=== PATIENT | female | born 1990 | race Caucasian/White ===

== ENCOUNTER → 2017-06-13 09:12 | Outpatient (CLI) | payer OTHER, SELFPAY ==
[2017-06-13 10:48] LABS: Hematocrit 38.6 % (37-47); Mean Corp Hgb Conc 33.7 g/gl (32-36); Mean Corpuscular Hgb 33.3 pg (27.0-32.0); Mean Platelet Vol. 10.9 fl (6.2-12.0); Platelet Count 147 K/mm3 (150-450); RBC Distribution Width CV 13.3 % (11.6-14.6); RBC Distribution Width SD 46.7 fl (35.1-43.9); White Blood Count 6.3 K/mm3 (4.4-11.0)
[2017-06-13 10:49] LABS: Scan Indicated on CBC? Y/N NO
[2017-06-13 12:44] LABS: Glucose Challenge Gest 1H 50g 79 mg/dL (70-140)
== END ==
PROVIDERS: Visit Provider Obstetrics & Gynecology
DX: Z34.83 Encounter for supervision of other normal pregnancy, third trimester (principal)
CPT/HCPCS: 36415; 82950; 85027

== ENCOUNTER → 2017-08-22 15:52 | Outpatient (CLI) | payer OTHER, SELFPAY ==
[2017-08-22 19:46] LABS: Group B Strep DNA By PCR Negative (Negative); Internal Control PASS; Probe Check PASS; Specimen Processing Control PASS
== END ==
PROVIDERS: Visit Provider Obstetrics & Gynecology
DX: Z36.85 Encounter for antenatal screening for Streptococcus B (principal)
CPT/HCPCS: 87081; 87653

== ENCOUNTER 2017-09-05 11:56 | Inpatient (IN) | payer OTHER, SELFPAY ==
[2017-09-05 13:10] LABS: Hematocrit 41.9 % (37-47); Hemoglobin 14.2 g/dl (12.0-15.0); Mean Corp Hgb Conc 33.9 g/gl (32-36); Mean Corpuscular Hgb 32.8 pg (27.0-32.0); Mean Corpuscular Volume 96.8 fL (81-99); Mean Platelet Vol. 11.5 fl (6.2-12.0); Platelet Count 140 K/mm3 (150-450); RBC Distribution Width CV 13.2 % (11.6-14.6); RBC Distribution Width SD 46.5 fl (35.1-43.9); Red Blood Count 4.33 M/mm3 (4.2-5.4); White Blood Count 10.9 K/mm3 (4.4-11.0)
[2017-09-05 13:14] LABS: Scan Indicated on CBC? Y/N NO
[2017-09-05 14:38] VITALS: BMI 27.9
[2017-09-05] MEDS: Oxytocin 10 UNITS/ML Vial IM (19:09)
--- NOTE | 2017-09-05 19:56 | PCM.OB.VAG ---
- Problem List (1) 40 weeks gestation of Status: Acute (2) Vacuum extractor delivery, delivered Status: Acute Vaginal Delivery Maternal Presentation: Active Labor Amniotic Membrane Rupture Type: Spontaneous Rupture of Membrane time: 1755h 09/05/17 Amniotic Fluid Description: Clear Final CIRO: 09/05/17 Final CIRO Source: US <20 weeks Gestational age: 40 Weeks and 0 Days [place] doctor who attended delivery (if requested by OB): Tasha Garcia Date of Procedure: 09/05/17 Pre-Operative Diagnosis: 40 wga, labor Post-Operative Diagnosis: 40 wga, labor Surgery/ Procedure Performed: Spontaneous Vaginal Delivery Type of Anesthesia: None, Local with 1% lidocaine Description of Procedure: Patient FD with bulging perineum. She pushed to +4 station however there was difficulty tracing the heart rate. An ISE was placed after obtaining consent and again was not tracing appropriately. As several minutes had passed I recommended vacuum assistance to expedite delivery. I reviewed potential for scalp laceration, edema, subgaleal hemorrhage, bruising quickly and patient agreed to proceed. The Kiwi cap was placed at the flexion point and 500mmHg applied. A single pull was performed over 1 contraction with delivery of the head. The vacuum was released. The was delivered through a nuchal cord and the cord reduced following delivery. The was placed on the maternal abdomen and further attended by nursery personnel and the Pediatric hospitalist. The cord was doubly clamped and cut. The placenta delivered spontaneously and appeared intact on inspection. A complex second degree laceration with right sulcal and left labial extension was repaired with 3-0 Vicryl rapide following administration of 1% lidocatin 20cc locally. Presentation: Vertex Placental Delivery Description: Spontaneous Cord Vessel Description: 3 Vessels Nuchal Cord Compression: Without compression Cord Gases drawn per routine: ABG, VBG Cord Entanglement: Around neck x 1, loose Drain: Shane to straight drain Estimated Blood Loss: 350 A gender: Male Episiotomy Description: None Laceration: Midline, Perineal Extension/lac, Vaginal Extension/lac, 2nd degree Medications given after delivery: - - IM pitocin - IV ejected during pushing.
[2017-09-05] MEDS: Acetaminophen 500 MG Tablet 1000 MG PO (21:12)
[2017-09-06 00:31] VITALS: BP 111/55; PULSE 93; RESP 18; TEMP 37.3; O2SAT 97
[2017-09-06 05:06] VITALS: BP 102/58; PULSE 92; RESP 16; TEMP 37.2
--- NOTE | 2017-09-06 06:36 | PCM.DCVAG ---
Discharge Diet: No Restrictions Discharge Activity: May Shower, May Take a Tub Bath Return to work on:: 10/21/17 May resume sexual activity in: 4-6 weeks Additional Activity Instructions:: Nothing in the vagina for 4-6 weeks. You may return to work/school in 6 weeks. Additional Instructions: If you experience any of the following, contact your healthcare provider. Bleeding that soaks a pad every hour for 2 hours Fever 100.4 or higher Unrelieved abdominal pain Problems urinating (including inability to urinate or burning while urinating). Visual changes Severe headache Flu-like symptoms Pain or redness in one of both of your breasts Pain, warmth, tenderness or swelling in your legs, especially the calf area Frequent nausea and vomiting Symptoms of depression or anxiety If you experience any of the following, call 911 or go to the nearest Emergency Room. Chest pain Problems breathing Seizure activity Partial or complete paralysis of a body part, slurred speech, weakness or drooping of the face, or a sudden inability to walk or hold your balance Allergies/Adverse Reactions: Allergies No Known Allergies Allergy (Verified 09/05/17 14:41) Medications to take at Discharge Calcium 600-Vit D3 200 Tablet 1 tab PO DAILY 09/05/17 Vits [Prenatabs FA ] 2 tab PO DAILY 09/05/17 Please Follow Up With: Lauren Gonzales MD - [phone] When: Call to make an appointment with your doctor in 6 weeks. Proposed Discharge Date: 09/07/17
--- NOTE | 2017-09-06 06:37 | DCINST_ITS ---
Discharge Diet: No Restrictions Discharge Activity: May Shower, May Take a Tub Bath Return to work on:: 10/21/17 May resume sexual activity in: 4-6 weeks Additional Activity Instructions:: Nothing in the vagina for 4-6 weeks. You may return to work/school in 6 weeks. Additional Instructions: If you experience any of the following, contact your healthcare provider. * Bleeding that soaks a pad every hour for 2 hours * Fever 100.4 or higher * Unrelieved abdominal pain * Problems urinating (including inability to urinate or burning while urinating) . * Visual changes * Severe headache * Flu-like symptoms * Pain or redness in one of both of your breasts * Pain, warmth, tenderness or swelling in your legs, especially the calf area * Frequent nausea and vomiting * Symptoms of depression or anxiety If you experience any of the following, call 911 or go to the nearest Emergency Room. * Chest pain * Problems breathing * Seizure activity * Partial or complete paralysis of a body part, slurred speech, weakness or drooping of the face, or a sudden inability to walk or hold your balance Allergies/Adverse Reactions: Allergies No Known Allergies Allergy (Verified 09/05/17 14:41) Medications to take at Discharge Calcium 600-Vit D3 200 Tablet 1 tab PO DAILY 09/05/17 Vits [Prenatabs FA ] 2 tab PO DAILY 09/05/17 Please Follow Up With: Lauren Gonzales MD - [phone] When: Call to make an appointment with your doctor in 6 weeks. Proposed Discharge Date: 09/07/17
--- NOTE | 2017-09-06 06:37 | PCM.PROGNOTE ---
Patient Problems: Active and Suspected Problems 40 weeks gestation of (Acute) Vacuum extractor delivery, delivered (Acute) Subjective: PPD#1 vacuum assisted vaginal delivery Doing well. Attempting to nurse, but not going very well yet. Pain control adequate Objective: resting, eyes closed. Nurse in room tending to crying baby. Pt rouses to name, voice, touch. - Physical Exam General: Oriented x3, Cooperative, No apparent distress HEENT: Atraumatic Neck: Supple Abdomen: Soft - fundus firm inferior to umbilicus, NT Neurological: Cranial nerves II-XII grossly intact Psych/Mental Status: Normal Affect Vital Signs Temp Pulse Resp BP Pulse Ox 98.9 F 92 16 102/58 L 97 09/06/17 05:06 09/06/17 05:06 09/06/17 05:06 09/06/17 05:06 09/06/17 00:31 Oxygen Delivery Method Room Air Weight: 67.132 kg Body Mass Index (BMI) 27.9 Laboratory Tests Past 24 Hrs 09/05/17 09/05/17 12:57 12:57 WBC 10.9 RBC 4.33 Hgb 14.2 Hct 41.9 MCV 96.8 MCH 32.8 H MCHC 33.9 RDW 13.2 RDW Differential 46.5 H Plt Count 140 L MPV 11.5 Blood Type A POSITIVE Antibody Screen NEGATIVE Medical Necessity - Tobacco Use Smoking Status: Never smoker Assessment/Plan All Active Problems 40 weeks gestation of (Acute) Vacuum extractor delivery, delivered (Acute) PPD#1 vacuum assisted vaginal delivery. Stable pp. continue care.
[2017-09-06] MEDS: Acetaminophen 500 MG Tablet 1000 MG PO (09:35)
[2017-09-06 09:39] VITALS: BP 106/57; PULSE 96; RESP 16; TEMP 37.2; O2SAT 97
[2017-09-06] MEDS: Naproxen 250 MG Tablet PO (17:26)
[2017-09-06 17:28] VITALS: BP 107/63; PULSE 90; RESP 16; TEMP 36.8; O2SAT 99
[2017-09-06 21:25] VITALS: BP 106/54; PULSE 91; RESP 17; TEMP 36.3; O2SAT 98
[2017-09-07 01:25] VITALS: BP 97/56; PULSE 77; RESP 16; TEMP 36.1
[2017-09-07] MEDS: Naproxen 250 MG Tablet PO (03:34)
--- NOTE | 2017-09-07 07:27 | PCM.PN.OB ---
Patient Problems: Active and Suspected Problems 40 weeks gestation of (Acute) Vacuum extractor delivery, delivered (Acute) Subjective: PPD#2 Vacuum assisted vaginal delivery Doing well. Breast feeding, but baby still not nursing as well as she would like, but better than yesterday. Pain is minimal and well controlled with K pad and NSAID. Some soreness at perineum. - Physical Exam General: Alert, Oriented x3, Cooperative, No apparent distress HEENT: Atraumatic Neck: Supple Abdomen: Soft - Fundus firm NT at umbilicus Neurological: Cranial nerves II-XII grossly intact Psych/Mental Status: Normal Affect Vital Signs Temp Pulse Resp BP Pulse Ox 97.0 F L 77 16 97/56 L 98 09/07/17 01:25 09/07/17 01:25 09/07/17 01:25 09/07/17 01:25 09/06/17 21:25 Oxygen Delivery Method Room Air Weight: 67.132 kg Body Mass Index (BMI) 27.9 Intake and Output for Last 24 Hours 09/05/17 09/06/17 09/07/17 23:59 23:59 23:59 Intake Total 1000 / 1000 Balance 1000 / 1000 Medical Necessity - Tobacco Use Smoking Status: Never smoker Assessment/Plan All Active Problems 40 weeks gestation of (Acute) Vacuum extractor delivery, delivered (Acute) PPD#2 vacuum assisted vaginal delivery. Stable pp. dischg home today RTO in 6 wk for pp check., prn sooner.
[2017-09-07] MEDS: Acetaminophen 500 MG Tablet 1000 MG PO (11:36)
[2017-09-07 11:43] VITALS: BP 92/62; PULSE 99; RESP 16; TEMP 36.4; O2SAT 98
[2017-09-07 15:29] VITALS: BP 101/69; PULSE 99; RESP 16; TEMP 36.6; O2SAT 98
== END 2017-09-07 15:45 | disposition home or self-care (01) | DRG 775 ==
LOC: WPOUT 12:15 → WP 12:15 → WPOUT 12:37 → WP 19:10
PROVIDERS: Obstetrics & Gynecology; Admitting Provider Obstetrics & Gynecology; Visit Provider Obstetrics & Gynecology
DX: O48.0 Post-term pregnancy (principal); Z3A.40 40 weeks gestation of pregnancy; O69.81X0 Labor and delivery complicated by cord around neck, without compression, not applicable or unspecified; O70.1 Second degree perineal laceration during delivery; Z37.0 Single live birth
CPT/HCPCS: 59025; 59050; 85027; 86850; 86900; 99218; J7120; A4216; G0378

== ENCOUNTER → 2018-12-15 10:16 | Outpatient (CLI) | payer OTHER, SELFPAY ==
[2018-12-15 10:38] LABS: Hematocrit 40.7 % (37-47); Hemoglobin 13.3 g/dL (12.0-15.0); Mean Corp Hgb Conc 32.7 g/dL (32-36); Mean Corpuscular Hgb 32.4 pg (27.0-32.0); Mean Corpuscular Volume 99.3 fL (81-99); Mean Platelet Vol. 10.7 fl (6.2-12.0); Platelet Count 157 K/mm3 (150-450); RBC Distribution Width CV 13.3 % (11.6-14.6); RBC Distribution Width SD 47.9 fl (35.1-43.9)
[2018-12-15 10:47] LABS: Glucose Challenge Gest 1H 50g 100 mg/dL (70-140)
== END ==
PROVIDERS: Visit Provider Obstetrics & Gynecology
DX: Z34.83 Encounter for supervision of other normal pregnancy, third trimester (principal)
CPT/HCPCS: 82950; 85027

== ENCOUNTER 2019-03-15 19:10 | Inpatient (IN) | payer OTHER, SELFPAY ==
[2019-03-15 20:00] VITALS: BMI 29.9
[2019-03-15 20:10] LABS: Absolute Lymphocyte Count 1.49 X10^3/uL (0.83-4.51); Absolute Neutrophil Count 6.2 X10^3/uL (2.0-7.7); Eosinophil# 0.04 X10^3/uL; Eosinophils% 0.5 % (0-5); Hematocrit 38.9 % (37-47); Lymphocyte # 1.49 X10^3/ul (4.0); Lymphocyte % 17.2 % (19-41); Mean Corp Hgb Conc 33.4 g/dL (32-36); Mean Corpuscular Volume 98.7 fL (81-99); Mean Platelet Vol. 11.5 fl (6.2-12.0); Monocyte# 0.82 X10^3/uL; Monocyte% 9.5 % (0-10); NRBC Flagged by Analyzer 0 % (0-5); Neutrophil # 6.21 X10^3/uL (2.7-7.7); Neutrophil % 71.9 % (47-70); Platelet Count 143 K/mm3 (150-450); RBC Distribution Width CV 13.1 % (11.6-14.6); RBC Distribution Width SD 47.8 fl (35.1-43.9); Red Blood Count 3.94 M/mm3 (4.2-5.4); White Blood Count 8.6 K/mm3 (4.4-11.0)
--- NOTE | 2019-03-15 21:19 | PCM.HP.OB ---
- Problem List (1) 40 weeks gestation of Status: Acute History Date of Admission: 03/15/19 Final CIRO: 03/11/19 Final CIRO Source: US <20 weeks Gestational age: 40 Weeks and 4 Days History of this : This is a 28 year-old, G [2], P [1], at 40.4 weeks gestational age. Allergies No Known Allergies Allergy (Verified 03/15/19 20:01) Home Medications: Home Medications Vits [Prenatabs FA ] 2 tab PO DAILY 09/05/17 Smoking Status: Never smoker Alcohol: None Number of Fetus(es): 1 NST - FHR Rate Baby A Baseline: 134 Variability:: Moderate Accelerations:: 15 x 15 Decelerations:: None NST Reactive:: Yes FHR Category:: Category I Uterine Activity:: irregular 1-2/10 minutes, not feeling them History Past Pregnancies: Male infant 09/05/[address] Quarles at [facility] Labs: Mom's Labs & Results 03/15/19 03/15/19 19:45 19:45 WBC 8.6 RBC 3.94 L Hgb 13.0 Hct 38.9 MCV 98.7 MCH 33.0 H MCHC 33.4 RDW Std Deviation 47.8 H RDW Coeff of Roshan 13.1 Plt Count 143 L MPV 11.5 Immature Gran % (Auto) 0.900 Neut % (Auto) 71.9 H Lymph % (Auto) 17.2 L [place] % (Auto) 9.5 Eos % (Auto) 0.5 Baso % (Auto) 0.0 Absolute Neuts (auto) 6.2 Absolute Lymphs (auto) 1.49 Nucleated RBC % 0 Blood Type A POSITIVE Antibody Screen NEGATIVE Course Did the patient receive Yes care? Labs Blood Type: A RH: POSITIVE RPR/VDRL/Syphilis Nonreactive Rubella status Immune HbSAg Negative Date Done: 09/18/18 Chlamydia Negative Gonorrhea Negative HIV/AIDS Unknown Group B Strep: Negative Current Obstetrical History Gestational Diabetes No Incompetent Cervix No Infertility No IUGR No Macrosomia No Hypertension/Pre-eclampsia No Placenta Previa/Abruption No PTL/PROM No Uterine anomaly No Oligohydramnios No Polyhydramnios No Multiple gestation No Past Medical History Asthma No Diabetes No Hypertension No Heart disease No Mitral valve prolapse No Neurologic/Seizure disorder/ No Migraines Kidney disease No Liver disease No Varicosities No Clotting disorders/Hx of DVT No Thyroid Dysfunction No Other medical diseases No Psychiatric disorders No Major trauma No Abnormal PAP smear No Sleep apnea No Mammogram in the last 2 years No Social History Marital Status: Alleged father Reinaldo Flores Hx Smoking No Smoking Status Never smoker Expected Infant Delivery Method: Spontaneous Vaginal Describe any other labor & delivery plans:: Wants to avoid epidural Number of Visits: 10 Review of Systems Constitutional: Denies: Chills, Fever, Weight Change HEENT: Denies: Head Aches, Sinus Congestion, Sinus Drainage Cardiovascular: Denies: Chest Pain, Palpitations Respiratory: Denies: Cough, Shortness of breath at rest, Sputum production Gastrointestinal: Denies: Abdominal Pain, Nausea, Vomiting Genitourinary: Denies: Dysuria Musculoskeletal: Denies: Joint Pain, Joint Tenderness Skin: Denies: Rash, Wounds Neurological: Denies: Numbness, Tingling, Focal weakness Psychiatric: Denies: Anxiety, Depression, Homicidal Ideations, Suicidal Ideations Hematologic/ Lymphatic: Denies: Easy Bruising, Easy Bleeding Physical Exam Vitals: Vital Signs Height 1.55 m Weight: 72.03 kg Weight in Pounds 158.8 lbs General: Alert, Oriented x3, No apparent distress HEENT: Atraumatic, Normocephalic. Negative for: Thyromegaly, Lymphadenopathy Cardiovascular: Regular rate, Regular Rhythm Lungs: Clear to auscultation Abdomen: Bowel Sounds Present, Gravid Neurological: Deep Tendon Reflexes 2+/4 and Symmetrical, Neuro grossly intact FINANCIAL ADVISER: Normal external genitalia. Negative for: Vulvar lesions Estimated gestational size: Appropriate for gestational size Presentation: Cephalic Cervix Dilation (cm): 2 - per RN Station: -3 Effacement (%): 60 Assessment/Plan All Active Problems (This Medical Record has been edited. Action required.) 40 weeks gestation of (Acute) Vacuum extractor delivery, delivered (Acute) A: This is a 28 year-old, G [2], P [1], at 40.4 weeks gestational age. NST Baseline 135, + accels, - decels, moderate variability, reactive Category I Scheduled elective induction of labor by Cytotec SVE unchanged from office /-3 soft midline P: Start induction with 50mcg Cytotec vaginally, followed by 25mcg Cytotec Q4H vaginally When SVE favorable will plan to start Pitocin Natural as possible delivery expected with minimal interventions, but understands pain management options available Expect
[2019-03-15] MEDS: miSOPROStol 25 MCG TABLET VAGINAL (23:24)
[2019-03-16] MEDS: Lactated Ringers 1,000 ML 50 ML IV (04:18)
[2019-03-16] MEDS: Oxytocin 30 units/NS 500 ml 30 UNITS/500 ML IV.SOLN IV (04:18)
[2019-03-16] MEDS: Lactated Ringers 500 ML 999 ML IV (04:53)
[2019-03-16] MEDS: Oxytocin 30 units/NS 500 ml 30 UNITS/500 ML IV.SOLN 334 UNITS IV (06:58)
[2019-03-16] MEDS: Methylergonovine 0.2 MG/ML Ampul IM (06:58)
--- NOTE | 2019-03-16 07:52 | PCM.PN.OB ---
Subjective: Feeling well, not feeling contractions yet Objective: VSS. SVE per RN /-2. UC 1-3 min. Per protocol will switch to Pitocin - Physical Exam Vitals/I&O's: Weight: 72.03 kg Body Mass Index (BMI) 29.9 Intake and Output for Last 24 Hours 03/14/19 03/15/19 03/16/19 23:59 23:59 23:59 Intake Total 2208.51 / 2208.51 Output Total 1700 / 1700 Balance 508.51 / 508.51 General: Alert, Oriented x3, Cooperative HEENT: Atraumatic, PERRLA, EOMI, Normocephalic Neck: Supple, No JVD, Negative Carotid Bruits Lungs: Clear to auscultation, Normal air movement Cardiovascular: Regular rate, No murmurs Abdomen: Bowel Sounds Present, Soft, Non Tender Extremities: No edema, Capillary Refill Less than 3 Seconds Skin: No rashes, No breakdown Musculoskeletal: No Tenderness to Palpation of Joints or Extremities Neurological: Cranial nerves II-XII grossly intact Psych/Mental Status: Normal Affect, Appropriate Laboratory Results 03/15/19 19:45: WBC 8.6, RBC 3.94 L, Hgb 13.0, Hct 38.9, MCV 98.7, MCH 33.0 H, MCHC 33.4, RDW Std Deviation 47.8 H, RDW Coeff of Roshan 13.1, Plt Count 143 L, MPV 11.5, Immature Gran % (Auto) 0.900, Neut % (Auto) 71.9 H, Lymph % (Auto) 17.2 L, [place] % (Auto) 9.5, Eos % (Auto) 0.5, Baso % (Auto) 0.0, Absolute Neuts (auto) 6.2, Absolute Lymphs (auto) 1.49, Nucleated RBC % 0 03/15/19 19:45: Blood Type A POSITIVE, Antibody Screen NEGATIVE Current Medications Acetaminophen (Tylenol) 325 - 650 mg PO Q4H PRN PRN PRN Reason: Pain Score 1-3/10 Al Hydroxide/Mg Hydroxide (Mylanta Ii) 15 - 30 ml PO Q4H PRN PRN PRN Reason: INDIGESTION Citric Acid/Sodium Citrate (Bicitra) 30 ml PO X1 PRN PRN Reason: Section Lactated Ringer's () 500 mls @ 999 mls/hr IV .Q31M PRN PRN Reason: Epidural Lactated Ringer's () 500 mls @ 999 mls/hr IV .Q31M PRN PRN Reason: Corrective Measures Last Infusion: 03/16/19 05:24 Dose: Infused Documented by: Lactated Ringer's () 1,000 mls @ 50 mls/hr IV .Q20H GABI Last Infusion: 03/16/19 06:53 Dose: Infused Documented by: Oxytocin/Sodium Chloride () 30 units in 500 mls @ 2 mls/hr IV .Q250H GABI Last Infusion: 03/16/19 06:53 Dose: Infused Documented by: Nalbuphine HCl (Nubain) 5 - 10 mg IV Q3H PRN PRN PRN Reason: Pain Score 4-10/10 Ondansetron HCl (Zofran) 4 mg IV Q4H PRN PRN PRN Reason: NAUSEA Prochlorperazine Edisylate (Compazine Iv) 10 mg IV Q6H PRN PRN PRN Reason: NAUSEA Sodium Chloride () 10 - 40 ml IV X1 PRN PRN Reason: SALINE FLUSH Medical Necessity - Tobacco Use Smoking Status: Never smoker Assessment/Plan All Active Problems (This Medical Record has been edited. Action required.) 40 weeks gestation of (Acute) Vacuum extractor delivery, delivered (Acute) A: Induction continues. SVE 3/60/-2 NST baseline 130, accels+, decels- at this time, RN reports two decels overnight but corrected with position change. Category I at this time, Category II earlier in the night P: Continue IOL, switch to Pitocin
--- NOTE | 2019-03-16 07:57 | PCM.OPRPT ---
Problem List (1) 40 weeks gestation of Status: Inactive (2) Spontaneous vaginal delivery Status: Acute Report of Operation Date of Procedure: 03/16/19 Vaginal Delivery Maternal Presentation: Elective Induction Method of Induction: Pitocin, Cytotec Amniotic Membrane Rupture Type: Spontaneous Rupture of Membrane time: 0400 Amniotic Fluid Description: Clear Final CIRO: 03/11/19 Final CIRO Source: US <20 weeks Gestational age: 40 Weeks and 5 Days Date of Procedure: 03/16/19 Pre-Operative Diagnosis: 40 weeks gestation Post-Operative Diagnosis: S/P Surgery/ Procedure Performed: Spontaneous Vaginal Delivery Type of Anesthesia: Local with 1% lidocaine Description of Procedure: Called that patient felt pushy, SVE 7-8/75/-2. Upon arrival on unit, Dr. Quarles in room with patient having spontaneous urge to push. Pushed well, delivered a viable female OA to KAREN. Delivered through loose nuchal x1, reduced after delivery of shoulders. Infant placed on mothers abdomen. Apgars 8/9. \Cord clamped x2 by CNM and cut by FOB. Pitocin started at 334ml/hr. Placenta delivered spontaneously, Cardoza mechanism, intact, 3 vessel cord, central insertion. With post placental bleeding, administered Methergine IM, and Pitocin wide open for 15 minutes then back to 334ml/hr. Fundal massage and exploration of uterus with small clots removed. Second degree laceration of left vaginal vault extending to perineum, repaired with a 3.0 vicryl in layers by CNM. EBL 400. Sponge and instrument count correct x 2 with RN. Presentation: Vertex, KAREN Placental Delivery Description: Spontaneous Placenta Disposition: [facility] Cord Vessel Description: 3 Vessels Cord Entanglement: Around neck x 1, loose Estimated Blood Loss: 400 Infant A gender: Female (1 minute): 8 (5 minute): 9 Episiotomy Description: None Laceration: Perineal Extension/lac, Vaginal Extension/lac, 2nd degree Medications given after delivery: IV Pitocin, IM Methergin
--- NOTE | 2019-03-16 08:08 | DCINST_ITS ---
Discharge Diet: No Restrictions Discharge Activity: Return to Normal Activity, May not drive while taking narcotic pain medications., May Shower May resume sexual activity in: 4-6 weeks Additional Activity Instructions:: Nothing in the vagina for 4-6 weeks. You may return to work/school in 6 weeks. Additional Instructions: If you experience any of the following, contact your healthcare provider. * Bleeding that soaks a pad every hour for 2 hours * Fever 100.4 or higher * Unrelieved incision or abdominal pain * Swelling, redness, discharge or bleeding from your incision or episiotomy site * Your incision begins to separate * Problems urinating (including inability to urinate or burning while urinating). * Visual changes * Severe headache * Flu-like symptoms * Pain or redness in one of both of your breasts * Pain, warmth, tenderness or swelling in your legs, especially the calf area * Frequent nausea and vomiting * Symptoms of depression or anxiety If you experience any of the following, call 911 or go to the nearest Emergency Room. * Chest pain * Problems breathing * Seizure activity * Partial or complete paralysis of a body part, slurred speech, weakness or drooping of the face, or a sudden inability to walk or hold your balance Allergies/Adverse Reactions: Allergies No Known Allergies Allergy (Verified 03/15/19 20:01) Medications to take at Discharge Vits [Prenatabs FA ] 2 tab PO DAILY 09/05/17 Please Follow Up With: Vanita Leiva CNM When: Call to make an appointment with your doctor in 6 weeks. If you have any signs or symptoms of Post- Depression please return in 2 weeks. Primary Care Physician: Care Physician,No Primary [Primary Care Provider] - Test Results: Test results from this visit will be discussed in further detail at your follow- up appointment, if applicable. Proposed Discharge Date: 03/17/19
--- NOTE | 2019-03-16 08:08 | PCM.DCVAG ---
Discharge Diet: No Restrictions Discharge Activity: Return to Normal Activity, May not drive while taking narcotic pain medications., May Shower May resume sexual activity in: 4-6 weeks Additional Activity Instructions:: Nothing in the vagina for 4-6 weeks. You may return to work/school in 6 weeks. Additional Instructions: If you experience any of the following, contact your healthcare provider. Bleeding that soaks a pad every hour for 2 hours Fever 100.4 or higher Unrelieved incision or abdominal pain Swelling, redness, discharge or bleeding from your incision or episiotomy site Your incision begins to separate Problems urinating (including inability to urinate or burning while urinating). Visual changes Severe headache Flu-like symptoms Pain or redness in one of both of your breasts Pain, warmth, tenderness or swelling in your legs, especially the calf area Frequent nausea and vomiting Symptoms of depression or anxiety If you experience any of the following, call 911 or go to the nearest Emergency Room. Chest pain Problems breathing Seizure activity Partial or complete paralysis of a body part, slurred speech, weakness or drooping of the face, or a sudden inability to walk or hold your balance Allergies/Adverse Reactions: Allergies No Known Allergies Allergy (Verified 03/15/19 20:01) Medications to take at Discharge Vits [Prenatabs FA ] 2 tab PO DAILY 09/05/17 Please Follow Up With: Vanita Leiva CNM When: Call to make an appointment with your doctor in 6 weeks. If you have any signs or symptoms of Post- Depression please return in 2 weeks. Primary Care Physician: Care Physician,No Primary [Primary Care Provider] - Test Results: Test results from this visit will be discussed in further detail at your follow-up appointment, if applicable. Proposed Discharge Date: 03/17/19
[2019-03-16] MEDS: Ibuprofen 600 MG Tablet PO ×2 (08:43→16:03)
[2019-03-16 09:30] VITALS: BP 112/59; PULSE 94; RESP 16; TEMP 36.7
[2019-03-16 12:00] VITALS: BP 117/70; PULSE 114; RESP 18; TEMP 37; O2SAT 97
[2019-03-16] MEDS: Senna/Docusate Sodium 1 Tablet PO (12:06)
[2019-03-16] MEDS: Acetaminophen 500 MG Tablet 1000 MG PO (12:33)
[2019-03-16 15:36] VITALS: BP 107/57; PULSE 93; RESP 16; TEMP 37.2; O2SAT 96
[2019-03-16 19:52] VITALS: BP 110/63; PULSE 102; RESP 18; TEMP 36.8; O2SAT 97
[2019-03-17 00:39] VITALS: BP 109/63; PULSE 84; RESP 18; TEMP 36.7; O2SAT 100
[2019-03-17] MEDS: Ibuprofen 600 MG Tablet PO (00:41)
[2019-03-17 04:20] VITALS: BP 98/52; PULSE 83; RESP 20; TEMP 36.4; O2SAT 97
[2019-03-17 04:43] LABS: Hemoglobin 9.2 g/dL (12.0-15.0); Mean Corp Hgb Conc 34.1 g/dL (32-36); Mean Corpuscular Hgb 33.8 pg (27.0-32.0); Mean Corpuscular Volume 99.3 fL (81-99); Mean Platelet Vol. 10.9 fl (6.2-12.0); Platelet Count 121 K/mm3 (150-450); RBC Distribution Width CV 13.4 % (11.6-14.6); RBC Distribution Width SD 47.8 fl (35.1-43.9); Red Blood Count 2.72 M/mm3 (4.2-5.4); White Blood Count 11.1 K/mm3 (4.4-11.0)
[2019-03-17 08:15] VITALS: BP 93/62; PULSE 82; RESP 14; TEMP 36.3
--- NOTE | 2019-03-17 10:45 | PCM.PN.OB ---
Patient Problems: Active and Suspected Problems (This Medical Record has been edited. Action required.) Spontaneous vaginal delivery (Acute) Subjective: Pain well controlled, tolerating diet, passing flatus; infant well; spouse bedside and supportive Objective: AVSS Breasts soft, nipples atraumatic Fundus firm, midline, u/1, lochia small Perineal repair well approximated, minimal edema, no ecchymosis, drainage or erythema noted - Physical Exam Vitals/I&O's: Vital Signs Temp Pulse Resp BP Pulse Ox 97.4 F L 82 14 93/62 97 03/17/19 08:15 03/17/19 08:15 03/17/19 08:15 03/17/19 08:15 03/17/19 04:20 Oxygen Delivery Method Room Air Weight: 158 lb 12.8 oz Body Mass Index (BMI) 29.9 Intake and Output for Last 24 Hours 03/15/19 03/16/19 03/17/19 23:59 23:59 23:59 Intake Total 2708.51 / 2708.51 Output Total 2100 / 2100 Balance 608.51 / 608.51 General: Alert, Oriented x3, Cooperative, No apparent distress HEENT: PERRLA, EOMI Oral: Moist Mucosa Neck: Supple Lungs: Clear to auscultation, Normal air movement Cardiovascular: Regular rate, Regular Rhythm Abdomen: Bowel Sounds Present, Soft, Non Tender, Non-Distended Extremities: No edema, Capillary Refill Less than 3 Seconds, No Calf Tenderness, Peripheral Pulses Normal Skin: No rashes Neurological: Cranial nerves II-XII grossly intact, Deep Tendon Reflexes 2+/4 and Symmetrical, Neuro grossly intact Psych/Mental Status: Normal Affect, Appropriate, Alert and oriented to time, place, person, mood and affect Laboratory Results 03/17/19 04:20: WBC 11.1 H, RBC 2.72 L, Hgb 9.2 L, Hct 27.0 L, MCV 99.3 H, MCH 33.8 H, MCHC 34.1, RDW Std Deviation 47.8 H, RDW Coeff of Roshan 13.4, Plt Count 121 L, MPV 10.9 Current Medications Acetaminophen (Tylenol) 1,000 mg PO Q8H PRN PRN PRN Reason: Pain Score 1-3/10 Last Admin: 03/16/19 12:33 Dose: 1,000 mg Documented by: Bisacodyl (Dulcolax) 10 mg RECTAL UD PRN PRN Reason: If no BM Dibucaine (Dibucaine) 1 applic TOPICAL TID PRN PRN; Protocol PRN Reason: Discomfort Hydrocortisone (Hytone) 1 applic TOPICAL TID PRN PRN; Protocol PRN Reason: Discomfort Ibuprofen (Motrin) 600 mg PO Q6H PRN PRN PRN Reason: Pain Score 1-3/10 Last Admin: 03/17/19 00:41 Dose: 600 mg Documented by: Methylergonovine Maleate (Methergine) 0.2 mg IM X1 PRN PRN Reason: Excess bleeding/uterine atony Last Admin: 03/16/19 06:58 Dose: 0.2 mg Documented by: Oxycodone HCl (Oxyir) 5 - 10 mg PO Q4H PRN PRN PRN Reason: Pain Score 4-10/10 Senna/Docusate Sodium (Senokot-S, Shira-Colace) 1 - 2 tablet PO DAILY PRN PRN PRN Reason: Constipation Last Admin: 03/16/19 12:06 Dose: 1 tablet Documented by: Simethicone (Mylicon) 80 mg PO PCHS PRN PRN Reason: Indigestion/Stomach pain Zolpidem Tartrate (Ambien (Generic)) 5 mg PO QHS PRN PRN PRN Reason: Insomnia Medical Necessity - Tobacco Use Smoking Status: Never smoker Assessment/Plan All Active Problems (This Medical Record has been edited. Action required.) Vacuum extractor delivery, delivered (Acute) Spontaneous vaginal delivery (Acute) Assessment: 28yo G2 now P2002 delivered via at 40w4d gestation by L=15w1d US ay #1, normal course Mild anemia .Plan: Discharge teaching completed Discharge home today Ferrous Sulfate, 325mg PO x 1 daily RTO 6 weeks for PP check up
--- NOTE | 2019-03-17 14:07 | CASEMGMT ---
Social Work - Brief Assessment Labor and Delivery Unit Patient Address: [address] [place], [place] [id number] Phone number: [phone] Date of Referral/Notification: 03.16.2019 Time of Referral: 1014 Referred By: Vanita Leiva CNM Reason for Referral: history of depression Date of Intervention: 03.17.2019 Time of Intervention: 1215 Informant: Medical record, mother of baby (MOB) Lauren Flores, and father of baby (FOB) Reinaldo Flores History: MOB is a 28 year old female, to FOB who is age 29. MOB and FOB now have 2 children together after MOB delivered baby Jessica Flores on 03.16.2019. Older child at home is Behzad Flores, born on 09.05.2017. MOB is G2, P1 to 2. care started in the 2nd trimester at 15 weeks but regular thereafter. MOB has graduated high school and is able to read, write, and understand what is read. 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 No agency involvement reported. MOB report history of depression after Behzad was born, which lasted for a couple of month and consisted of ?dark thoughts.? MOB report had thoughts of hurting the baby, denies any desire to do so nor any specific thoughts on how to hurt the baby. MOB report she pushed these thoughts down, did not share with anyone which then led to greater stress and anxiety. MOB reports immediate relief upon sharing her struggle with FOB who was supportive and helpful. MOB denies ever acting on thoughts of harming Behzad, denies any thoughts of harming herself. Assessment: MOB and FOB both cooperative and pleasant with social work visit. MOB open with manager social with FOB in the room. MOB reports has felt good emotionally this , denies depression, anxiety, intrusive or scary thoughts. MOB reports to feel in a better place this time around as FOB will be home to help for a longer period of time. MOB also has greater social connections as compared to last period consisting of weekly get togethers with MOB?s sisters, one of whom has had depression, and then MOB is involved in 2 mommy groups. MOB reports she will be less hesitant to share depression and anxiety issues this time around as does not want to feel the same way as last time and knows that talking to her support network helped immensely. Talked with MOB about risk for depression in light of past history, and educated to some alternative interventions including counseling and medication. MOB reports to feel her current support network is sufficient, but reports if becomes insufficient would be willing to consider medication, maybe counseling. MOB reports to feel a connection to this baby, and is looking forward to going home. MOB report to have have all needed supplies to care for the baby, denies any other needs or concerns for home going. Offered MOB and FOB both time to ask question and verbalize any worries or concerns. MOB?s affect was bright, eye contact normal, and mood appropriate to situation. FOB attentive to baby during social work stay, quiet, but did offer input intermittently, appearing supportive to MOB. MOB accepted mood and anxiety disorder packet that includes online, texting, phone, and in person support for said topic. Reviewed safe sleeping and shaken baby preventions, which MOB was able to give appropriate answers to both. Spoke with Lizette [facility] and no concerns noted in parent/child interactions or boding. Plan: MOB and baby to home. mood and anxiety disorder packet given and reviewed. No further needs requested or indicated. -KIA Vela, [employer] RISK ANALYTICS MANAGER
[2019-03-17 14:33] VITALS: BP 112/67; PULSE 116; RESP 16; TEMP 36.9; O2SAT 97
== END 2019-03-17 14:40 | disposition home or self-care (01) | DRG 807 ==
PROVIDERS: Admitting Provider Obstetrics & Gynecology; Referring Provider Obstetrics & Gynecology; Visit Provider Obstetrics & Gynecology
DX: O42.02 Full-term premature rupture of membranes, onset of labor within 24 hours of rupture (principal); Z37.0 Single live birth; O99.02 Anemia complicating childbirth; D64.89 Other specified anemias; O70.1 Second degree perineal laceration during delivery; O69.81X0 Labor and delivery complicated by cord around neck, without compression, not applicable or unspecified; Z3A.40 40 weeks gestation of pregnancy
CPT/HCPCS: 59025; 59050; 85025; 85027; 86850; 86900; 86901; 99218; J7120; G0378